=== PATIENT | female | born 1980 | race Caucasian/White ===

== ENCOUNTER → 2021-06-02 | Outpatient (CLI) | payer SELFPAY | END | disposition home or self-care (01) | LOC: LAB SHORT 11:57 | DX: O09.523 Supervision of elderly multigravida, third trimester (principal) | CPT/HCPCS: 87081; 87150 ==

== ENCOUNTER 2021-07-02 20:15 | Inpatient (IN) | payer BC ==
[~2021-07-02] VITALS: Ht 165.1 cm; Wt 98.0 kg
[2021-07-02] MEDS ORDERED: PRENATAL TABLE1 EAC2 PO (21:00)
[2021-07-02 21:08] LABS: BASOPHILS ABSOLUTE AUTO 0.03 K/mm3 (0.00-0.23); BASOPHILS PERCENT AUTO 0 % (0-2); EOSINOPHILS ABSOLUTE AUTO 0.06 K/mm3 (0.00-0.68); EOSINOPHILS PERCENT AUTO 1 % (0-6); Hematocrit 32.7 % (33.0-51.0); IMMATURE GRAN ABSOLUTE AUTO 0.04 K/mm3 (0.00-0.10); IMMATURE GRAN PERCENT AUTO 1 % (0-1); LYMPHOCYTES ABSOLUTE AUTO 1.81 K/mm3 (0.84-5.20); LYMPHOCYTES PERCENT AUTO 25 % (21-46); MONOCYTES ABSOLUTE AUTO 0.28 K/mm3 (0.16-1.47); MONOCYTES PERCENT AUTO 4 % (4-13); Mean Corpuscular HGB 31.2 pg (26.0-34.0); Mean Corpuscular HGB Conc 33.6 g/dL (31.5-36.5); Mean Corpuscular Volume 93 fL (80-100); Mean Platelet Volume 11.6 fL (9.1-12.4); NEUTROPHILS ABSOLUTE AUTO 4.95 K/mm3 (1.96-9.15); NEUTROPHILS PERCENT AUTO 69 % (41-73); Platelet Count 215 K/mm3 (150-400); RDW Coefficient Variation 13.5 % (11.7-14.2); RDW Standard Deviation 45.5 fL (35.1-46.3); Red Blood Cell Count 3.53 M/mm3 (3.80-5.20); White Blood Cell Count 7.17 K/mm3 (4.00-11.30)
[2021-07-02 21:52] LABS: Influenza A, PCR NEGATIVE (NEGATIVE); Influenza B, PCR NEGATIVE (NEGATIVE); Resp Syncytial Virus, PCR NEGATIVE (NEGATIVE); SARS-Cov-2 (COVID-19) PCR, MMC NEGATIVE (NEGATIVE)
[2021-07-04] MEDS ORDERED: IBUP800 PO (15:07)
== END 2021-07-04 16:10 | disposition home or self-care (01) | DRG 807 ==
LOC: OBS 20:15 → BC 20:18 → OBS 20:23 → BC 20:28
PROVIDERS: ADMIT Family Medicine
PROC: 10E0XZZ Delivery of Products of Conception, External Approach (ICD-10-PCS; principal; 2021-07-03)
PROC: 10907ZC Drainage of Amniotic Fluid, Therapeutic from Products of Conception, Via Natural or Artificial Opening (ICD-10-PCS; 2021-07-03)
PROC: 3E0P7VZ Introduction of Hormone into Female Reproductive, Via Natural or Artificial Opening (ICD-10-PCS; 2021-07-03)
PROC: 00HU33Z Insertion of Infusion Device into Spinal Canal, Percutaneous Approach (ICD-10-PCS; 2021-07-03)
PROC: 3E0R3BZ Introduction of Anesthetic Agent into Spinal Canal, Percutaneous Approach (ICD-10-PCS; 2021-07-03)
DX: O99.824 Streptococcus B carrier state complicating childbirth (principal); Z37.0 Single live birth; Z3A.40 40 weeks gestation of pregnancy; Z20.822 Contact with and (suspected) exposure to COVID-19; O69.81X0 Labor and delivery complicated by cord around neck, without compression, not applicable or unspecified; O99.52 Diseases of the respiratory system complicating childbirth; J30.2 Other seasonal allergic rhinitis; O99.02 Anemia complicating childbirth; D64.9 Anemia, unspecified; O99.344 Other mental disorders complicating childbirth; F41.9 Anxiety disorder, unspecified; F32.A Depression, unspecified; Z79.899 Other long term (current) drug therapy
CPT/HCPCS: 0241U; 36415; 51702; 85025; 86850; 86900; 86901; A9270; J0290; J1885; J2001; J2405; J2590; J3010; J7120

== ENCOUNTER → 2022-09-29 | Outpatient (CLI) | payer BC ==
[~2022-09-29] MED LIST: IBUP800 PO; PRENATAL TABLE1 EAC2 PO
[2022-09-30 15:12] LABS: HPV 16 Negative (Negative); HPV 18 Negative (Negative); HPV OTHER HR TYPES Negative (Negative)
== END | disposition home or self-care (01) ==
LOC: LAB SHORT 16:39 → LAB 16:39
PROVIDERS: Family Medicine
DX: Z01.419 Encounter for gynecological examination (general) (routine) without abnormal findings (principal)
CPT/HCPCS: 87624; G0145

== ENCOUNTER → 2024-04-27 | Outpatient (CLI) | payer BC ==
[~2024-04-27] MED LIST changes: +AMOCLA875 PO; +AZIT250 PO
== END | disposition home or self-care (01) ==
LOC: LAB SHORT 17:49 → LAB 17:49
DX: J02.9 Acute pharyngitis, unspecified (principal)
CPT/HCPCS: 87081

== ENCOUNTER 2024-04-29 11:58 | Emergency (ER) | payer BC ==
[~2024-04-29] VITALS: Ht 167.6 cm; Wt 81.7 kg
[~2024-04-29 11:58] MED LIST changes: -AMOCLA875 PO; -AZIT250 PO
[2024-04-29 12:09] VITALS: BP 120/67
[2024-04-29] MEDS ORDERED: Lactated Ringer's 1,000 ML IV ONE (12:29)
[2024-04-29] MEDS ORDERED: Sod Ferric Gluc Complx/Sucrose 125 MG in NS 100 ML IV ONE (12:50)
[2024-04-29 13:22] LABS: Percent Saturation 158.2 % (15.0-50.0)
[2024-04-29] MEDS ORDERED: Acetaminophen 500 MG Tab PO ONE (15:10)
[2024-04-29] MEDS ORDERED: Lactated Ringer's 1,000 ML IV SCH (15:30)
[2024-04-29 15:44] LABS: International Normalized Ratio 1.04; Prothrombin Time Results 11.1 Sec (9.7-11.5)
[2024-04-29] MEDS ORDERED: CefTRIAXone Sodium 1,000 MG in NS 100 ML IV ONE (17:55)
[2024-04-29] MEDS ORDERED: Azithromycin 250 MG Tab PO ONE (17:55)
[2024-04-29] MEDS ORDERED: AZIT250 PO ×2 (17:58)
[2024-04-29] MEDS ORDERED: AMOCLA875 PO ×2 (17:58)
[2024-04-29 18:15] VITALS: BP 126/73
== END 2024-04-29 18:19 | disposition home or self-care (01) ==
LOC: OBS 11:58 → ER 11:58 → BC 11:58 → EDSTATUS 14:01 → ER 18:19
PROVIDERS: Obstetrics & Gynecology; Student in an Organized Health Care Education/Training Program
DX: O99.512 Diseases of the respiratory system complicating pregnancy, second trimester (principal); O09.92 Supervision of high risk pregnancy, unspecified, second trimester; J18.9 Pneumonia, unspecified organism; Z3A.25 25 weeks gestation of pregnancy
CPT/HCPCS: 36415; 71260; 81003; 82728; 83540; 83550; 84484; 85610; 85730; 86850; 86900; 86901; 93005; 93010; 96374-59; 99214; 99285-25; A9270; J0696; J2916; J7120; Q9967

== ENCOUNTER → 2024-04-29 | Outpatient (CLI) | payer BC ==
[2024-04-29 10:31] LABS: BASOPHILS ABSOLUTE AUTO 0.02 K/mm3 (0.00-0.23); BASOPHILS PERCENT AUTO 0 % (0-2); EOSINOPHILS PERCENT AUTO 0 % (0-6); Hemoglobin 7.9 g/dL (11.5-16.0); IMMATURE GRAN ABSOLUTE AUTO 0.01 K/mm3 (0.00-0.10); IMMATURE GRAN PERCENT AUTO 0 % (0-1); LYMPHOCYTES ABSOLUTE AUTO 0.68 K/mm3 (0.84-5.20); LYMPHOCYTES PERCENT AUTO 12 % (21-46); MONOCYTES ABSOLUTE AUTO 0.11 K/mm3 (0.16-1.47); MONOCYTES PERCENT AUTO 2 % (4-13); Mean Corpuscular HGB 31.2 pg (26.0-34.0); Mean Corpuscular HGB Conc 32.9 g/dL (31.5-36.5); Mean Corpuscular Volume 95 fL (80-100); Mean Platelet Volume 9.6 fL (9.1-12.4); NEUTROPHILS ABSOLUTE AUTO 4.96 K/mm3 (1.96-9.15); NEUTROPHILS PERCENT AUTO 86 % (41-73); Platelet Count 213 K/mm3 (150-400); RDW Coefficient Variation 14.7 % (11.7-14.2); RDW Standard Deviation 50.2 fL (35.1-46.3); Red Blood Cell Count 2.53 M/mm3 (3.80-5.20); White Blood Cell Count 5.78 K/mm3 (4.00-11.30)
[2024-04-29 10:40] LABS: Albumin, Blood 1.8 g/dL (3.4-5.0); Albumin/Globulin Ratio 0.2 (0.8-1.8); Bilirubin, Total 0.4 mg/dL (0.1-1.0); Bun/Creatinine Ratio 10.5 (12.0-20.0); Creatinine, Blood 0.76 mg/dL (0.40-1.00); Potassium, Blood 3.8 mmol/L (3.5-5.5); Total Protein, Blood 11.8 g/dL (6.4-8.2)
== END ==
LOC: LAB 10:18 → LAB SHORT 10:18
PROVIDERS: Emergency Medicine
DX: R07.89 Other chest pain (principal); J02.9 Acute pharyngitis, unspecified; R50.9 Fever, unspecified
CPT/HCPCS: 80053; 83880; 84484; 85025; 85379; 87081

== ENCOUNTER 2024-06-23 03:40 | Day surgery (SDC) | payer BC ==
[~2024-06-23 03:40] MED LIST changes: +AMOCLA875 PO; +AZIT250 PO
[2024-06-23] MEDS ORDERED: NS 250 ML IV SCH (07:05)
[2024-06-23] MEDS ORDERED: MAGNESIUM OXID500 MG PO (13:45)
[2024-06-23] MEDS ORDERED: VITAMIN K240 MCG PO (13:46)
[2024-06-23] MEDS ORDERED: VITAMIN D362.5 MC1 PO (13:47)
[2024-06-23] MEDS ORDERED: Feosol45 MG PO (13:48)
[2024-06-23] MEDS ORDERED: ACET325 PO (13:49)
[2024-06-23 14:18] VITALS: BP 138/80
[2024-06-23 14:37] VITALS: BP 117/73
[2024-06-23 15:38] VITALS: BP 130/73
[2024-06-23 16:06] VITALS: BP 124/76
[2024-06-23 16:24] VITALS: BP 123/73
[2024-06-23 17:24] VITALS: BP 116/72
== END 2024-06-23 18:01 | disposition home or self-care (01) ==
LOC: ATC 03:40
DX: D64.9 Anemia, unspecified (principal); R79.83 Abnormal findings of blood amino-acid level
CPT/HCPCS: 36415; 86850; 86900; 86901; 86923; J7050; P9016

== ENCOUNTER → 2024-08-15 | Outpatient (CLI) | payer BC ==
[~2024-08-15] MED LIST changes: +ACET325 PO; +Feosol45 MG PO; +MAGNESIUM OXID500 MG PO; +VITAMIN D362.5 MC1 PO; +VITAMIN K240 MCG PO
== END ==
LOC: LAB 11:40 → LAB SHORT 11:40
DX: C90.00 Multiple myeloma not having achieved remission (principal); D64.9 Anemia, unspecified
CPT/HCPCS: 81025

== ENCOUNTER → 2024-09-06 | Outpatient (CLI) | payer BC | LOC: LAB SHORT 17:45 → LAB 17:45 | DX: D64.9 Anemia, unspecified (principal); C90.00 Multiple myeloma not having achieved remission | CPT/HCPCS: 81025 ==